=== PATIENT | female | born 1960 | race Caucasian/White ===

== ENCOUNTER 2018-01-06 23:23 | Emergency (ER) | payer OTHER ==
[~2018-01-06] VITALS: Ht 162.6 cm; Wt 62.4 kg
[~2018-01-06 23:23] MED LIST: ATORVASTATIN CA20 MG PO; ATROVENT H200 INHALA IH; DEPAKOTE500 MG PO; LIPITOR20 MG PO; NAPROXEN500 MG PO; NEURONTIN800 MG PO; PERCOCET 10/1 TABLET PO; PROAIR HFA8.5 GM IH; SYMBICORT60 INHALAT IH; VENTOLIN HFA18 GM IH
[2018-01-07 00:43] LABS: BASE EXCESS 4.7 mEq/L (-3 to +3); BICARBONATE 30.4 mEq/L (22-26); CARBOXY HGB 6.7 % (0-5); METHEMOGLOBIN 0.4 % (0-1.5); PCO2 48 mm Hg (35-45); PO2 87 mm Hg (80-100); pH 7.41 (7.35-7.45)
[2018-01-07 00:44] LABS: COMMENTS - BLOOD GASES C+; DEVICE NC; O2 FLOW 3 L/MIN; SITE RB; TOTAL RESP RATE 16 resp/min
[2018-01-07 00:50] LABS: HEMATOCRIT 43.6 % (36.0-46.0); HEMOGLOBIN 14.7 G/DL (11.9-15.5); MCH 31.5 PG (29.0-34.0); MCHC 33.7 G/DL (30.0-36.0); MCV 93.4 FL (83-99); PLATELET COUNT 362 K/uL (156-360); RBC DIS.WIDTH-CV 12.6 % (11.8-14.6); RBC DIS.WIDTH-SD 43.5 % (39-53); RED BLOOD COUNT 4.67 M/uL (3.80-5.20); WHITE BLOOD COUNT 14.4 K/uL (4.1-10.2)
[2018-01-07 00:59] LABS: ALBUMIN 3.9 g/dL (3.2-4.8)
[2018-01-07 01:00] LABS: CHLORIDE 104 mEq/L (99-109); POTASSIUM 4.1 mEq/L (3.7-5.4); SODIUM 141 mEq/L (136-147)
[2018-01-07 01:02] LABS: GLUCOSE 101 mg/dL (70-99); TOTAL PROTEIN 7.1 g/dL (6.4-8.3)
[2018-01-07 01:04] LABS: TOTAL BILIRUBIN 0.3 mg/dL (0.0-1.0)
[2018-01-07 01:05] LABS: SERUM ETHYL ALCOHOL < 10 mg/dL
[2018-01-07 01:06] LABS: ALKALINE PHOSPHATASE 87 IU/L (3-129); CREATININE 0.9 mg/dL (0.6-1.3); GFR ESTIMATE (CALCULATED) > 59 mL/min/
[2018-01-07 01:07] LABS: AST (GOT) 23 IU/L (2-34)
[2018-01-07 01:08] LABS: UREA NITROGEN (BUN) 18 mg/dL (9-23)
[2018-01-07 01:09] LABS: ALT (GPT) 18 IU/L (3-49); SALICYLATE < 5.0 MG/DL (15-30)
[2018-01-07 01:10] LABS: ACETAMINOPHEN (TYLENOL) < 10 mcg/mL (10-30); LIPASE 18 U/L (1.0-51.0)
[2018-01-07 02:12] LABS: AMPHETAMINE PRESUMPTIVE POSITIVE (500 ng/mL); BARBITURATES NEGATIVE (200 ng/mL); BENZODIAZEPINES NEGATIVE (150 ng/mL); BUPRENORPHINE NEGATIVE (10 ng/mL); COCAINE NEGATIVE (150 ng/mL); METHADONE NEGATIVE (200 ng/mL); METHAMPHETAMINE NEGATIVE (500 ng/mL); OPIATES (MORPHINE) NEGATIVE (100 ng/mL); OXYCODONE NEGATIVE (100 ng/mL); PHENCYCLIDINE NEGATIVE (25 ng/mL); PROPOXYPHENE NEGATIVE (300 ng/mL); THC CANNABINOIDS NEGATIVE (50 ng/mL); TRICYCLIC ANTIDEPRESSANTS NEGATIVE (300 ng/mL)
[2018-01-07 03:06] VITALS: BP 170/91
== END 2018-01-07 03:06 | disposition home or self-care (01) ==
LOC: EME → EDBD 23:23 → EME 01-07 03:06
PROVIDERS: Emergency Medicine
DX: R41.82 Altered mental status, unspecified (principal); R09.02 Hypoxemia; T50.995A Adverse effect of other drugs, medicaments and biological substances, initial encounter; M54.9 Dorsalgia, unspecified; G89.29 Other chronic pain; F17.200 Nicotine dependence, unspecified, uncomplicated
CPT/HCPCS: 36600; 70450; 71045; 80053; 82803; 83690; 84999; 85027; 93005; 99281; 99285; G0480; J7030